=== PATIENT | male | born 1985 | race Caucasian/White ===

== ENCOUNTER 2020-11-04 13:54 | Emergency (ER) | payer OTHER, SELFPAY ==
--- NOTE | 2020-11-04 14:01 | ED.URI ---
HPI - URI/Sore Throat General Chief Complaint: Upper Respiratory Infection Stated Complaint: Sore Throat Time Seen by Provider: 11/04/20 14:01 Source: patient and RN notes reviewed History of Present Illness HPI Narrative: Patient is a 34-year-old male who presents the urgent care with complaints of white spots on the throat . Patient states that he has chronic sinusitis and takes Zyrtec daily for chronic allergies. Patient states that he wakes up every morning with a sore throat that resolves throughout the day. Patient denies of any sore throat at this time but states he is worried about the white spots . Patient denies of any known exposure to strep or Covid. Denies of any other respiratory complaints or fever. No other acute complaints. No acute distress noted. Patient aware of the plan of care. Some parts of this dictation were generated by voice recognition software and may contain typographical and/or grammatical inaccuracies. Related Data Home Medications Medication Instructions Recorded Confirmed No Home Medications 11/04/20 11/04/20 Allergies Allergy/AdvReac Type Severity Reaction Status Date / Time Penicillins Allergy Unknown Rash Verified 11/04/20 14:29 Review of Systems Review of Systems: Narrative: CONSTITUTIONAL: Denies fever, chills, or sweats. EYES: Denies visual changes, redness, or discharge. ENT: Reports of white spots in the throat CARDIOVASCULAR: Denies chest pain, palpitations, or edema. RESPIRATORY: Denies cough or dyspnea. GASTROINTESTINAL: Denies abdominal pain, nausea, vomiting, or diarrhea. GENITOURINARY: Denies dysuria or hematuria. SKIN: Denies rash or itching. MUSCULOSKELETAL: Denies back pain, joint pain, or myalgia. NEUROLOGIC: Denies headache, numbness, or weakness. All other systems reviewed are negative, except as documented in HPI. PMFSH Comments At the time of my signature, I reviewed and agree with the nursing past medical, surgical, social, and family history. There is no relevant family history pertinent to the patient complaint. Exam Narrative: Exam Narrative: GENERAL: This is a well-nourished, well-developed patient, in no apparent distress. HEAD: normocephalic, atraumatic. EYES: PERRL. Sclera clear/white. Vision is grossly intact. EARS: External ears normal, auditory canals clear and without drainage, TMs normal without perforation. Hearing grossly intact. NOSE: External nose normal with no obvious nasal discharge, nares without redness, no rhinorrhea. THROAT: Mucous membranes moist. Mild erythema noted to posterior oropharynx with mild postnasal drainage and bilateral exudate without tonsillar edema. NECK: Neck supple, non-tender without lymphadenopathy SKIN: warm, intact with no suspicious lesions or rash, good texture and turgor. NEURO: awake, alert, and oriented to person, place and time. There were no obvious focal neurologic abnormalities. EXTREMITIES: No clubbing, cyanosis, or edema. Course Vital Signs Vital signs: Vital Signs Temperature 97.4 F L 11/04/20 14:19 Pulse Rate 72 11/04/20 14:19 Respiratory Rate 14 11/04/20 14:19 Blood Pressure 131/72 11/04/20 14:19 Pulse Oximetry 99 11/04/20 14:19 Temperature 97.4 F L 11/04/20 14:19 Pulse Rate 72 11/04/20 14:19 Respiratory Rate 14 11/04/20 14:19 Blood Pressure 131/72 11/04/20 14:19 Pulse Oximetry 99 11/04/20 14:19 Reviewed MDM - URI/Sore Throat MDM Narrative Medical decision making narrative: Reviewed lab results with the patient. He is aware that strep swab was negative. Educated the patient on culture we will call within 72 hours if culture is positive and antibiotics are necessary. Advised the patient to continue taking his daily Zyrtec in conjunction with Flonase nasal spray prior to bedtime. Use a humidifier at night and do not sleep with a fan. Follow-up with your PCP within 2 to 5 days or for worsening symptoms or failure to improve. Differential Diagnosis Diffe
[2020-11-04 14:19] VITALS: BP 131/72; PULSE 72; RESP 14; TEMP 36.3; O2SAT 99
== END 2020-11-04 14:46 | disposition home or self-care (01) ==
LOC: EXPBETH 14:55
PROVIDERS: Emergency Provider Nurse Practitioner Family; PCP Family Medicine
DX: J03.90 Acute tonsillitis, unspecified (principal)
CPT/HCPCS: 87081; 87880; 99213; G0463

== ENCOUNTER 2020-11-08 11:33 | Emergency (ER) | payer OTHER, SELFPAY ==
[2020-11-08 11:42] VITALS: BP 131/84; PULSE 101; RESP 16; TEMP 36.9; O2SAT 98
--- NOTE | 2020-11-08 11:44 | ED.URI ---
HPI - URI/Sore Throat General Chief Complaint: Upper Respiratory Infection Stated Complaint: Swollen Throat Time Seen by Provider: 11/08/20 11:50 Source: patient and RN notes reviewed Mode of arrival: ambulatory Limitations: no limitations History of Present Illness HPI Narrative: 35 year old male who states that he has had sore throat since the 02 of November with symptoms gradually increasing. Patient states that he was seen on the 9 of this month and was strep tested which was negative. Patient states that he takes daily Zyrtec D for seasonal allergies. Patient reports history of facial reconstruction as child to left forehead area due to injury. Patient states also history of chronic sinus infections in the past.Patient has noted swelling to lymph nodes on left side of neck with tenderness on palpation. Patient states that he has terrible bad breath and he feels sinus congestion with pressure and some drainage noted also to back of throat.Patient does admit to tobacco abuse daily of cigarettes for the past 20 years. MD elicited complaint: sore throat and rhinorrhea (post nasal) Pertinent past history: sinusitis, seasonal allergies and other (strep) Consistency: progressively worsening Able to tolerate fluids by mouth: Yes Exacerbating factors: swallowing Relieving factors: nothing Associated symptoms: myalgias, rhinorrhea (clear), sore throat and other (swollen glands left) Treatments prior to arrival: acetaminophen, ibuprofen and other (daily Zyrtec D) Related Data Home Medications Medication Instructions Recorded Confirmed Zyrtec 10 mg PO DAILY 11/08/20 11/08/20 Allergies Allergy/AdvReac Type Severity Reaction Status Date / Time Penicillins Allergy Unknown Rash Verified 11/08/20 11:47 Review of Systems Review of Systems: Narrative: CONSTITUTIONAL: Denies fever, chills, or sweats. EYES: Denies visual changes, redness, or discharge. ENT: Positive rhinorrhea,nasal congestion, sore throat, no otalgia, positive for swollen lymph nodes neck left neck which are painful. reports increase in throat pain since previous visit. CARDIOVASCULAR: Denies chest pain, palpitations, or edema. RESPIRATORY: Denies cough or dyspnea. GASTROINTESTINAL: Denies abdominal pain, nausea, vomiting, or diarrhea. GENITOURINARY: Denies dysuria or hematuria. SKIN: Denies rash or itching. 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 PSYCHIATRIC: Denies anxiety or depression. All systems reviewed & are unremarkable except as noted in HPI and below PMFSH Past Medical History Medical History (Updated 11/08/20 @ 12:43 by Julieta Alcantara NP) Seasonal allergies Sinusitis Strep pharyngitis Surgical History Surgical History (Updated 11/08/20 @ 12:45 by Julieta Alcantara NP) History of plastic surgery left forehead region as child Hx of hernia repair Hx of microdiscectomy L4-5 Social History Social History (Updated 11/08/20 @ 12:47 by Julieta Alcantara NP) Smoking status: Current every day smoker Tobacco type: cigarettes Alcohol intake: unknown Substance use: unknown Living arrangements: with family Gender identity (if verbalized by the patient): Male Comments At time of signature, agree with nursing past medical, surgical, social history. There is no relevant family history pertinent to the presenting complaint Exam Narrative: Exam Narrative: GENERAL: Well-appearing, well-nourished, and in no acute distress. HEAD: Normocephalic, atraumatic. EYES: PERRLA and EOMI. ENT: Nares red with clear rhinorrhea no epistaxis. Mucous membranes moist.TM's normal with good light reflex, throat red with some mild tonsil redness no exudates but post nasal drainage noted, voices acute throat pain which increases with swallowing NECK: Supple.lymphadenopathy on left neck CHEST: Clear to auscultation. No respiratory distress.SAO2 98% on room
== END 2020-11-08 12:34 | disposition home or self-care (01) ==
PROVIDERS: Emergency Provider Registered Nurse; PCP Family Medicine
DX: J02.9 Acute pharyngitis, unspecified (principal); J01.40 Acute pansinusitis, unspecified; F17.210 Nicotine dependence, cigarettes, uncomplicated
CPT/HCPCS: 36416; 86308; 99213; G0463

== ENCOUNTER 2020-12-31 13:55 | Emergency (ER) | payer OTHER, SELFPAY ==
[2020-12-31 14:12] VITALS: BP 104/80; PULSE 98; RESP 18; TEMP 36.8; O2SAT 97
--- NOTE | 2020-12-31 14:37 | ED.SKABFB ---
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 Is tender to touch but otherwise there is minimal swelling and only mild fluctuance Related Data Allergies Allergy/AdvReac Type Severity Reaction Status Date / Time Penicillins Allergy Unknown Rash Verified 12/31/20 14:19 Review of Systems Review of Systems: Narrative: CONSTITUTIONAL: Denies fever, chills, sweats. EYES: Denies visual changes, redness, discharge. ENT: Denies rhinorrhea, congestion, sore throat, otalgia. CARDIOVASCULAR: Denies chest pain, palpitations, edema. RESPIRATORY: Denies dyspnea, wheezing, cough GASTROINTESTINAL: Denies abdominal pain, nausea, vomiting, diarrhea. GENITOURINARY: Denies dysuria, hematuria, abnormal discharge SKIN: Denies rash or itching. Left ear hematoma with fluctuance NEUROLOGIC: Denies numbness, or focal weakness. PSYCHIATRIC: Denies anxiety or depression. [facility] Past Medical History Medical History Seasonal allergies Sinusitis Strep pharyngitis Surgical History Surgical History History of plastic surgery left forehead region as child Hx of hernia repair Hx of microdiscectomy L4-5 Family History Family History Other No acute medical problems Social History Social History (Updated 12/31/20 @ 14:53 by Vicky Guillory CNP) Smoking packs per day: 0.5 Smoking cigarettes per day: 10.0 Smoking status: Current every day smoker Tobacco type: cigarettes Alcohol intake: current Substance use: unknown Gender identity (if verbalized by the patient): Male Comments At time of signature, I agree with nursing past medical, surgical, social and family history. There is no relevant family history pertinent to the presenting complaint. Exam Narrative: Exam Narrative: GENERAL: This is a well-nourished, well-developed patient, in mild distress. HEAD: normocephalic, atraumatic. EYES: Sclera clear/white. Vision is grossly intact. EARS: External ears normal, auditory canals clear and without drainage, left ear has hematoma with mild fluctuance at the entrance to the canal, mild tenderness hearing grossly intact. NOSE: External nose normal without nasal discharge, nares without redness, no rhinorrhea. THROAT: Mucous membranes moist, NECK: Neck supple, non-tender CARDIOVASCULAR: Regular rate and rhythm without murmurs, gallops, or rubs. RESPIRATORY: Clear to auscultation. Breath sounds equal bilaterally. No wheezes, rales, or rhonchi. GASTROINTESTINAL: Abdomen soft, SKIN: warm, intact with no suspicious lesions or rash, good texture and turgor. NEURO: awake, alert, and oriented to person, place and time. There were no obvious focal neurologic abnormalities. Steady gait EXTREMITIES: Normal range of motion. BACK: Nontender without deformity Course Course Emergency Course: Left ear trauma from [employer] activities last week needs draining of hematoma Hematoma drained without difficulty Started on Bactrim Care instructions given Vital Signs Vital signs: Vital Signs Temperature 98.2 F 12/31/20 14:12 Pulse Rate 98 12/31/20 14:12 Respiratory Rate 18 12/31/20 14:12 Blood Pressure 104/80 12/31/20 14:12 Pulse Oximetry 97 12/31/20 14:12 Temperature 98.2 F 12/31/20 14:12 Pulse Rate 98 12/31/20 14:12 Respiratory Rate 18 12/31/20 14:12 Blood Pressure 104/80 12/31/20 14:12 Pulse Oximetry 97 02
== END 2020-12-31 15:02 | disposition home or self-care (01) ==
PROVIDERS: Emergency Provider Nurse Practitioner; PCP Family Medicine
DX: S00.432A Contusion of left ear, initial encounter (principal); X58.XXXA Exposure to other specified factors, initial encounter; Y93.75 Activity, martial arts; F17.210 Nicotine dependence, cigarettes, uncomplicated
CPT/HCPCS: 10160; 99213; G0463